=== PATIENT | female | born 1960 | race African-American/Black ===

== ENCOUNTER 2016-07-05 13:02 | Emergency (ER) | payer MEDICAID, OTHER ==
[~2016-07-05] VITALS: Ht 154.9 cm; Wt 46.8 kg
[2016-07-05] MEDS ORDERED: KETOROLAC TROMETHAMINE 60 MG/2 ML VIAL IM ONE (13:45)
[2016-07-05] MEDS ORDERED: METHOCARBAMOL 500 MG TABLET PO ONE (13:45)
[2016-07-05 15:00] VITALS: BP 143/77
== END 2016-07-05 15:04 | disposition home or self-care (01) ==
LOC: EMS 13:03
DX: S20.211A Contusion of right front wall of thorax, initial encounter (principal); F17.210 Nicotine dependence, cigarettes, uncomplicated; F15.90 Other stimulant use, unspecified, uncomplicated; F14.90 Cocaine use, unspecified, uncomplicated; X58.XXXA Exposure to other specified factors, initial encounter; Y93.89 Activity, other specified; Y92.89 Other specified places as the place of occurrence of the external cause; Y99.8 Other external cause status
CPT/HCPCS: 71010; 96372; 99283; J1885

== ENCOUNTER 2017-03-08 12:29 | Inpatient (IN) | payer MEDICAID ==
[~2017-03-08] VITALS: Ht 157.5 cm; Wt 50.3 kg
[2017-03-08 14:02] LABS: BASOPHILS % (AUTO) 1.2 % (0.0-2.0); EOSINOPHILS % (AUTO) 4.1 % (1.0-6.0); HEMATOCRIT 39.7 % (36-46); HEMOGLOBIN 13.6 g/dL (12.0-16.0); LYMPHOCYTES # (AUTO) 1.4 K/uL (1.0-4.8); MEAN CORPUSCULAR HEMOGLOBIN 33.7 pg (26.0-34.0); MEAN CORPUSCULAR HGB CONC 34.3 G/dL (31.0-37.0); MEAN CORPUSCULAR VOLUME 98 fL (80-100); MONOCYTES # (AUTO) 0.5 K/uL (0.1-1.0); MONOCYTES % (AUTO) 12.2 % (2.0-9.0); NEUTROPHILS # (AUTO) 2.1 K/uL (1.8-7.7); NEUTROPHILS % (AUTO) 49.5 % (40.0-70.0); PLATELET COUNT (AUTO) 251 K/uL (150-450); RED BLOOD CELL COUNT(AUTO) 4.05 MIL/uL (4.00-5.20); RED CELL DISTRIBUTION WIDTH 13.6 % (11.5-14.5); WHITE BLOOD COUNT (AUTO) 4.3 K/uL (4.5-11.0)
[2017-03-08] MEDS ORDERED: HALOPERIDOL 5 MG TABLET PO ONE (14:15)
[2017-03-08] MEDS ORDERED: LORazepam 2 MG TABLET PO ONE (14:15)
[2017-03-08 14:18] LABS: ANION GAP 9 mmol/L (8-16); CALCIUM, TOTAL 9.1 mg/dL (8.8-10.5); CARBON DIOXIDE 26 mmol/L (22-29); CHLORIDE 104 mmol/L (98-107); CREATININE 0.98 mg/dL (0.60-1.30); GLOMERULAR FILTR. RATE CALC > 60 mL/min (>60); SODIUM SERUM 139 mmol/L (136-145); UREA NITROGEN, BLOOD 24 mg/dL (7-18)
[2017-03-08 14:21] LABS: ALANINE AMINOTRANSFERASE 55 U/L (12-78); ALBUMIN 3.8 g/dL (3.4-5.0); ASPARTATE AMINOTRANSFERASE 57 U/L (15-37); BILIRUBIN,TOTAL 0.4 mg/dL (0.1-1.0); TOTAL PROTEIN, SERUM 7.8 g/dL (6.4-8.2)
[2017-03-08] MEDS ORDERED: ZOLPIDEM TARTRATE 10 MG TABLET PO PRN (14:30)
[2017-03-08] MEDS ORDERED: HALOPERIDOL 5 MG TABLET PO PRN (14:30)
[2017-03-08 16:56] VITALS: BP 109/65
[2017-03-09 07:29] LABS: HEMOGLOBIN A1C 5.2 % (4.5-6.2)
[2017-03-09 07:39] LABS: CHOL/HDL RATIO 2.1 (3.9-5.7); THYROID STIMULATING HORMONE 0.48 uIU/mL (0.36-3.74)
[2017-03-09 09:57] VITALS: BP 121/76
[2017-03-09 16:30] VITALS: BP 129/90
[2017-03-09] MEDS: OLANZapine 5 MG TABLET PO SCH (21:42)
[2017-03-10 00:45] VITALS: BP 139/101
[2017-03-10] MEDS: IBUPROFEN 400 MG TABLET PO PRN (00:47)
[2017-03-10] MEDS: LORazepam 2 MG TABLET PO PRN (08:19)
[2017-03-10] MEDS: ACETAMINOPHEN 325 MG TABLET PO PRN (08:20)
[2017-03-10 08:57] VITALS: BP 143/68
[2017-03-10 16:42] VITALS: BP 123/77
[2017-03-10] MEDS: OLANZapine 5 MG TABLET PO SCH (21:12)
[2017-03-11 00:45] VITALS: BP 139/60
[2017-03-11] MEDS: ACETAMINOPHEN 325 MG TABLET PO PRN (00:50)
[2017-03-11] MEDS: DOCUSATE SODIUM 100 MG CAPSULE PO SCH ×2 (10:15→17:00)
[2017-03-11 10:28] VITALS: BP 144/86
[2017-03-11 16:39] VITALS: BP 114/76
[2017-03-11] MEDS: OLANZapine 5 MG TABLET PO SCH (20:35)
[2017-03-11] MEDS: IBUPROFEN 400 MG TABLET PO PRN (20:36)
[2017-03-12 08:00] VITALS: BP 129/91
[2017-03-12] MEDS: DOCUSATE SODIUM 100 MG CAPSULE PO SCH ×2 (09:00→16:27)
[2017-03-12] MEDS: LORazepam 2 MG TABLET PO PRN (10:01)
[2017-03-12] MEDS: IBUPROFEN 400 MG TABLET PO PRN (15:12)
[2017-03-12 16:12] VITALS: BP 107/72
[2017-03-12] MEDS: OLANZapine 5 MG TABLET PO SCH (20:11)
[2017-03-13] MEDS ORDERED: OLAN5TAB2 PO (00:04)
[2017-03-13 03:35] VITALS: BP 107/67
[2017-03-13] MEDS: IBUPROFEN 400 MG TABLET PO PRN (03:37)
[2017-03-13 08:30] VITALS: BP 127/80
[2017-03-13] MEDS: DOCUSATE SODIUM 100 MG CAPSULE PO SCH (09:00)
== END 2017-03-13 13:31 | disposition home or self-care (01) | DRG 753 ==
LOC: EMS 12:32 → 3EI 15:02
PROVIDERS: ADMIT Psychiatry & Neurology Psychiatry; ATTEND Psychiatry & Neurology Child & Adolescent Psychiatry
DX: F31.5 Bipolar disorder, current episode depressed, severe, with psychotic features (principal); R45.851 Suicidal ideations; J45.909 Unspecified asthma, uncomplicated; Z59.0 Homelessness; Z91.5 Personal history of self-harm; F10.10 Alcohol abuse, uncomplicated; F17.200 Nicotine dependence, unspecified, uncomplicated; R74.0 Nonspecific elevation of levels of transaminase and lactic acid dehydrogenase [LDH]
CPT/HCPCS: 83036; 84443; 99285; 99406; G0480

== ENCOUNTER 2017-10-17 07:24 | Inpatient (IN) | payer MEDICAID ==
[~2017-10-17] VITALS: Ht 152.4 cm; Wt 54.4 kg
[~2017-10-17 07:24] MED LIST: OLAN5TAB2 PO
[2017-10-17 07:48] LABS: BASOPHILS % (AUTO) 0.9 % (0.0-2.0); EOSINOPHILS % (AUTO) 4.8 % (1.0-6.0); HEMATOCRIT 39.9 % (36-46); LYMPHOCYTES # (AUTO) 1.5 K/uL (1.0-4.8); LYMPHOCYTES % (AUTO) 30.6 % (22.0-44.0); MEAN CORPUSCULAR HEMOGLOBIN 34.1 pg (26.0-34.0); MEAN CORPUSCULAR VOLUME 97 fL (80-100); MONOCYTES # (AUTO) 0.5 K/uL (0.1-1.0); MONOCYTES % (AUTO) 9.6 % (2.0-9.0); NEUTROPHILS # (AUTO) 2.6 K/uL (1.8-7.7); NEUTROPHILS % (AUTO) 54.1 % (40.0-70.0); PLATELET COUNT (AUTO) 254 K/uL (150-450); RED CELL DISTRIBUTION WIDTH 12.8 % (11.5-14.5)
[2017-10-17 08:02] LABS: ANION GAP 6 mmol/L (8-16); CALCIUM, TOTAL 8.6 mg/dL (8.8-10.5); CARBON DIOXIDE 28 mmol/L (22-29); CHLORIDE 105 mmol/L (98-107); CREATININE 0.72 mg/dL (0.60-1.30); GLOMERULAR FILTR. RATE CALC > 60 mL/min (>60); GLUCOSE,RANDOM 106 mg/dL (70-110); POTASSIUM 3.9 mmol/L (3.5-5.1); SODIUM SERUM 139 mmol/L (136-145); UREA NITROGEN, BLOOD 10 mg/dL (7-18)
[2017-10-17 08:09] LABS: ALANINE AMINOTRANSFERASE 99 U/L (12-78); ALBUMIN 3.6 g/dL (3.4-5.0); ALKALINE PHOSPHATASE 124 U/L (46-116); ASPARTATE AMINOTRANSFERASE 64 U/L (15-37); BILIRUBIN,TOTAL 0.7 mg/dL (0.1-1.0); TOTAL PROTEIN, SERUM 7.8 g/dL (6.4-8.2)
[2017-10-17] MEDS ORDERED: OLANZapine 5 MG TABLET PO PRN (09:15)
[2017-10-17] MEDS ORDERED: HydrOXYzine PAMOATE 25 MG CAPSULE PO ONE (09:15)
[2017-10-17 12:53] VITALS: BP 114/60
[2017-10-17] MEDS: NICOTINE 14 MG/24 HOUR PATCH TD SCH (13:10)
[2017-10-17] MEDS ORDERED: PETROLATUM,WHITE 71 GM JELLY TP PRN (16:00)
[2017-10-17] MEDS ORDERED: MAGNESIUM HYDROXIDE SUSPENSION 30 ML UDCUP PO PRN (16:00)
[2017-10-17] MEDS ORDERED: ONDANSETRON HCL 4 MG TABLET PO PRN (16:00)
[2017-10-17] MEDS ORDERED: ACETAMINOPHEN 325 MG TABLET PO PRN (16:00)
[2017-10-17] MEDS ORDERED: DOCUSATE SODIUM 100 MG CAPSULE PO PRN (16:00)
[2017-10-17] MEDS ORDERED: ALBUTEROL SULFATE HFA 90 MCG/PUFF 8 GM INHALER IH PRN (16:00)
[2017-10-17 16:08] VITALS: BP 121/90
[2017-10-17] MEDS: IBUPROFEN 400 MG TABLET PO PRN (20:42)
[2017-10-17] MEDS: ZOLPIDEM TARTRATE 10 MG TABLET PO PRN (20:42)
[2017-10-17] MEDS ORDERED: OLANZapine 5 MG TABLET PO SCH (21:00)
[2017-10-18 08:08] VITALS: BP 134/67
[2017-10-18] MEDS: OLANZapine 5 MG TABLET PO SCH ×2 (08:54→16:36)
[2017-10-18] MEDS: IBUPROFEN 400 MG TABLET PO PRN ×2 (08:55→21:59)
[2017-10-18] MEDS: NICOTINE 14 MG/24 HOUR PATCH TD SCH (08:55)
[2017-10-18 08:56] VITALS: BP 132/70
[2017-10-18] MEDS ORDERED: NICOTINE 14 MG/24 HOUR PATCH TD SCH (09:00)
[2017-10-18 09:19] LABS: HEMOGLOBIN A1C 5.5 % (4.5-6.2)
[2017-10-18] MEDS: HydrOXYzine PAMOATE 25 MG CAPSULE PO PRN (09:31)
[2017-10-18 09:35] LABS: CHOL/HDL RATIO 2.3 (3.9-5.7); THYROID STIMULATING HORMONE 0.48 uIU/mL (0.36-3.74)
[2017-10-18 16:23] VITALS: BP 116/68
[2017-10-19 06:36] VITALS: BP 126/83
[2017-10-19 08:19] VITALS: BP 126/71
[2017-10-19] MEDS: OLANZapine 5 MG TABLET PO SCH ×2 (09:06→16:00)
[2017-10-19] MEDS: NICOTINE 14 MG/24 HOUR PATCH TD SCH (09:06)
[2017-10-19] MEDS: HydrOXYzine PAMOATE 25 MG CAPSULE PO PRN ×2 (09:09→16:00)
[2017-10-19 16:01] VITALS: BP 113/71
[2017-10-20 06:47] VITALS: BP 133/80
[2017-10-20] MEDS: OLANZapine 5 MG TABLET PO SCH ×2 (08:06→16:08)
[2017-10-20] MEDS: NICOTINE 14 MG/24 HOUR PATCH TD SCH (08:07)
[2017-10-20 08:22] VITALS: BP 120/74
[2017-10-20 09:01] LABS: APPEARANCE,URINE TURBID (CLEAR); BILIRUBIN,URINE NEGATIVE (NEGATIVE); GLUCOSE, URINE (UA) NEGATIVE (NEGATIVE); KETONES,URINE NEGATIVE (NEGATIVE); LEUKOCYTE ESTERASE ,URINE MODERATE (NEGATIVE); NITRATE,URINE NEGATIVE (NEGATIVE); OCCULT BLOOD,URINE NEGATIVE (NEGATIVE); PROTEIN,URINE NEGATIVE (NEGATIVE); UROBILINOGEN,URINE 0.2 mg/dL (<=1.0)
[2017-10-20] MEDS: HydrOXYzine PAMOATE 25 MG CAPSULE PO PRN ×2 (09:08→16:08)
[2017-10-20 09:09] LABS: AMPHET/METH SCREEN,URINE NEGATIVE (NEGATIVE); BARBITURATE SCREEN, URINE NEGATIVE (NEGATIVE); BENZODIAZEPINES SCREEN,URINE NEGATIVE (NEGATIVE); CANNABINOID SCREEN,URINE NEGATIVE (NEGATIVE); COCAINE SCREEN,URINE POSITIVE (NEGATIVE); METHADONE SCREEN, URINE NEGATIVE (NEGATIVE); OPIATE SCREEN,URINE NEGATIVE (NEGATIVE)
[2017-10-20 09:10] LABS: PHENCYCLIDINE SCREEN,URINE NEGATIVE (NEGATIVE)
[2017-10-20 09:18] LABS: RBC,URINE None Seen /HPF (0-2)
[2017-10-20 09:20] LABS: BACTERIA,URINE Few /HPF (None Seen)
[2017-10-20 09:21] LABS: CALCIUM OXALATE CRYSTALS,UR Many /LPF (None Seen); SQUAMOUS EPITHELIAL CELL,UR Moderate /LPF (None Seen)
[2017-10-20 09:22] LABS: URIC ACID CRYSTALS,URINE Few /LPF (None Seen)
[2017-10-20 16:06] VITALS: BP 112/74
[2017-10-20] MEDS: ZOLPIDEM TARTRATE 10 MG TABLET PO PRN (20:10)
[2017-10-21 06:17] VITALS: BP 135/80
[2017-10-21] MEDS: HydrOXYzine PAMOATE 25 MG CAPSULE PO PRN ×2 (08:55→16:21)
[2017-10-21] MEDS: NICOTINE 14 MG/24 HOUR PATCH TD SCH (08:56)
[2017-10-21] MEDS: OLANZapine 5 MG TABLET PO SCH (08:56)
[2017-10-21 08:57] VITALS: BP 129/76
[2017-10-21 16:07] VITALS: BP 120/72
[2017-10-21] MEDS: MAG HYDROX/AL HYDROX/SIMETH ES 30 ML SUSPENSION UDCUP PO PRN (16:20)
[2017-10-21] MEDS: OLANZapine 10 MG TABLET PO SCH (16:21)
[2017-10-21] MEDS: CIPROFLOXACIN HCL 250 MG TABLET PO SCH (16:21)
[2017-10-21] MEDS: SERTRALINE HCL 50 MG TABLET PO SCH (20:42)
[2017-10-22 06:46] VITALS: BP 120/83
[2017-10-22 08:00] VITALS: BP 118/82
[2017-10-22] MEDS: OLANZapine 10 MG TABLET PO SCH ×2 (08:34→16:29)
[2017-10-22] MEDS: CIPROFLOXACIN HCL 250 MG TABLET PO SCH ×2 (08:35→16:29)
[2017-10-22] MEDS: NICOTINE 14 MG/24 HOUR PATCH TD SCH (08:36)
[2017-10-22 16:00] VITALS: BP 115/68
[2017-10-22] MEDS: HydrOXYzine PAMOATE 25 MG CAPSULE PO PRN (16:29)
[2017-10-22] MEDS: SERTRALINE HCL 50 MG TABLET PO SCH (20:25)
[2017-10-22] MEDS: ZOLPIDEM TARTRATE 10 MG TABLET PO PRN (20:37)
[2017-10-23 07:08] VITALS: BP 120/78
[2017-10-23 08:19] VITALS: BP 127/76
[2017-10-23] MEDS: OLANZapine 10 MG TABLET PO SCH ×2 (08:28→16:31)
[2017-10-23] MEDS: CIPROFLOXACIN HCL 250 MG TABLET PO SCH ×2 (08:28→16:31)
[2017-10-23] MEDS: NICOTINE 14 MG/24 HOUR PATCH TD SCH (08:54)
[2017-10-23] MEDS: HydrOXYzine PAMOATE 25 MG CAPSULE PO PRN (09:54)
[2017-10-23 16:00] VITALS: BP 110/71
[2017-10-23] MEDS: SERTRALINE HCL 50 MG TABLET PO SCH (20:48)
[2017-10-24 07:09] VITALS: BP 112/75
[2017-10-24 08:13] VITALS: BP 122/77
[2017-10-24] MEDS: CIPROFLOXACIN HCL 250 MG TABLET PO SCH ×2 (09:21→16:10)
[2017-10-24] MEDS: NICOTINE 14 MG/24 HOUR PATCH TD SCH (09:22)
[2017-10-24] MEDS: OLANZapine 10 MG TABLET PO SCH ×2 (09:22→16:36)
[2017-10-24 16:11] VITALS: BP 135/87
[2017-10-24] MEDS: MAG HYDROX/AL HYDROX/SIMETH ES 30 ML SUSPENSION UDCUP PO PRN (17:29)
[2017-10-24] MEDS: HydrOXYzine PAMOATE 25 MG CAPSULE PO PRN (17:31)
[2017-10-24] MEDS: SERTRALINE HCL 50 MG TABLET PO SCH (20:25)
[2017-10-25 03:25] VITALS: BP 128/85
[2017-10-25] MEDS ORDERED: OLAN10TA3 PO (04:43)
[2017-10-25] MEDS ORDERED: SERT50TA12 PO (04:43)
[2017-10-25] MEDS ORDERED: CIPR250S4 PO (04:43)
[2017-10-25] MEDS ORDERED: CIP250 PO (07:52)
[2017-10-25] MEDS: OLANZapine 10 MG TABLET PO SCH (08:11)
[2017-10-25] MEDS: CIPROFLOXACIN HCL 250 MG TABLET PO SCH (08:11)
[2017-10-25] MEDS: NICOTINE 14 MG/24 HOUR PATCH TD SCH (08:12)
[2017-10-25 08:21] VITALS: BP 131/80
== END 2017-10-25 10:04 | disposition home or self-care (01) | DRG 750 ==
LOC: EMS 07:24 → B3A 10:17
PROVIDERS: ADMIT Psychiatry & Neurology Psychiatry; ATTEND Psychiatry & Neurology Psychiatry
DX: F25.0 Schizoaffective disorder, bipolar type (principal); R45.851 Suicidal ideations; F29 Unspecified psychosis not due to a substance or known physiological condition; B18.2 Chronic viral hepatitis C; N39.0 Urinary tract infection, site not specified; F14.10 Cocaine abuse, uncomplicated; F10.10 Alcohol abuse, uncomplicated; Y90.9 Presence of alcohol in blood, level not specified; F12.10 Cannabis abuse, uncomplicated; F17.200 Nicotine dependence, unspecified, uncomplicated; J45.909 Unspecified asthma, uncomplicated; F31.9 Bipolar disorder, unspecified; F41.9 Anxiety disorder, unspecified; G47.00 Insomnia, unspecified; Z59.0 Homelessness; Z91.19 Patient's noncompliance with other medical treatment and regimen
CPT/HCPCS: 80074; 80307; 83036; 84443; 99285; G0480

== ENCOUNTER 2017-11-25 12:30 | Emergency (ER) | payer MEDICAID ==
[~2017-11-25] VITALS: Ht 154.9 cm; Wt 50.0 kg
[~2017-11-25 12:30] MED LIST changes: +CIP250 PO; +OLAN10TA3 PO; -OLAN5TAB2 PO; +SERT50TA12 PO
[2017-11-25] MEDS ORDERED: TRAZ-219 PO (12:38)
[2017-11-25 13:06] LABS: BASOPHILS % (AUTO) 1.5 % (0.0-2.0); EOSINOPHILS % (AUTO) 1.8 % (1.0-6.0); HEMATOCRIT 37.3 % (36-46); HEMOGLOBIN 12.7 g/dL (12.0-16.0); LYMPHOCYTES # (AUTO) 1.3 K/uL (1.0-4.8); LYMPHOCYTES % (AUTO) 42.4 % (22.0-44.0); MEAN CORPUSCULAR HEMOGLOBIN 33.5 pg (26.0-34.0); MEAN CORPUSCULAR HGB CONC 34.2 G/dL (31.0-37.0); MEAN CORPUSCULAR VOLUME 98 fL (80-100); MONOCYTES # (AUTO) 0.4 K/uL (0.1-1.0); NEUTROPHILS # (AUTO) 1.3 K/uL (1.8-7.7); NEUTROPHILS % (AUTO) 42.3 % (40.0-70.0); PLATELET COUNT (AUTO) 210 K/uL (150-450); RED BLOOD CELL COUNT(AUTO) 3.81 MIL/uL (4.00-5.20); RED CELL DISTRIBUTION WIDTH 12.6 % (11.5-14.5)
[2017-11-25 13:23] LABS: ANION GAP 6 mmol/L (8-16); CALCIUM, TOTAL 8.8 mg/dL (8.8-10.5); CARBON DIOXIDE 27 mmol/L (22-29); CHLORIDE 103 mmol/L (98-107); CREATININE 0.65 mg/dL (0.60-1.30); GLOMERULAR FILTR. RATE CALC > 60 mL/min (>60); GLUCOSE,RANDOM 94 mg/dL (70-110); POTASSIUM 3.9 mmol/L (3.5-5.1); SODIUM SERUM 136 mmol/L (136-145); UREA NITROGEN, BLOOD 13 mg/dL (7-18)
[2017-11-25 13:29] LABS: ALANINE AMINOTRANSFERASE 102 U/L (12-78); ALBUMIN 3.5 g/dL (3.4-5.0); ALKALINE PHOSPHATASE 118 U/L (46-116); ASPARTATE AMINOTRANSFERASE 109 U/L (15-37); BILIRUBIN,TOTAL 0.7 mg/dL (0.1-1.0); TOTAL PROTEIN, SERUM 7.6 g/dL (6.4-8.2)
[2017-11-25 15:26] LABS: AMPHET/METH SCREEN,URINE POSITIVE (NEGATIVE); BARBITURATE SCREEN, URINE NEGATIVE (NEGATIVE); BENZODIAZEPINES SCREEN,URINE NEGATIVE (NEGATIVE); CANNABINOID SCREEN,URINE NEGATIVE (NEGATIVE); COCAINE SCREEN,URINE POSITIVE (NEGATIVE); METHADONE SCREEN, URINE NEGATIVE (NEGATIVE); OPIATE SCREEN,URINE NEGATIVE (NEGATIVE); PHENCYCLIDINE SCREEN,URINE NEGATIVE (NEGATIVE)
[2017-11-25 17:56] VITALS: BP 127/78
== END 2017-11-25 18:10 | disposition home or self-care (01) ==
LOC: EMS 12:31
DX: F31.9 Bipolar disorder, unspecified (principal); F15.10 Other stimulant abuse, uncomplicated; R74.0 Nonspecific elevation of levels of transaminase and lactic acid dehydrogenase [LDH]; F17.210 Nicotine dependence, cigarettes, uncomplicated; F14.10 Cocaine abuse, uncomplicated; F12.10 Cannabis abuse, uncomplicated; Z59.0 Homelessness; Z79.899 Other long term (current) drug therapy
CPT/HCPCS: 36415; 80053; 80307; 85025; 99285; 99406; G0480

== ENCOUNTER 2018-07-07 08:18 | Emergency (ER) | payer MEDICAID ==
[~2018-07-07] VITALS: Ht 154.9 cm; Wt 50.0 kg
[~2018-07-07 08:18] MED LIST changes: -CIP250 PO; +TRAZ-219 PO
[2018-07-07] MEDS ORDERED: KETOROLAC TROMETHAMINE 30 MG/ML VIAL IM ONE (09:45)
[2018-07-07] MEDS ORDERED: LIDOCAINE 5% TRANSDERMAL PATCH TD ONE (09:45)
[2018-07-07 10:29] VITALS: BP 146/92
== END 2018-07-07 10:42 | disposition home or self-care (01) ==
LOC: EMS 08:18
DX: M54.41 Lumbago with sciatica, right side (principal); F17.210 Nicotine dependence, cigarettes, uncomplicated; F31.9 Bipolar disorder, unspecified; F20.9 Schizophrenia, unspecified; F14.90 Cocaine use, unspecified, uncomplicated; F12.90 Cannabis use, unspecified, uncomplicated; F19.90 Other psychoactive substance use, unspecified, uncomplicated; Z91.018 Allergy to other foods
CPT/HCPCS: 96372; 99283; 99406; J1885